=== PATIENT | female | born 1935 | race Two or more races ===

== ENCOUNTER 2022-07-31 10:00 | Day surgery (SDC) | payer OTHER | END 2022-07-31 15:05 | disposition home or self-care (01) | LOC: AMB-ENDOS 10:00 | PROVIDERS: ATTEND Surgery | DX: K62.3 Rectal prolapse (principal); R15.9 Full incontinence of feces; Z86.010 Personal history of colon polyps; Z88.6 Allergy status to analgesic agent ==

== ENCOUNTER 2022-09-21 08:30 | Inpatient (IN) | payer OTHER ==
[~2022-09-21] VITALS: Ht 149.9 cm; Wt 54.4 kg
[2022-09-21] MEDS ORDERED: TIROSINT50 MCG PO (10:05)
[2022-09-21] MEDS ORDERED: CITALOPRAM PO (10:06)
[2022-09-21] MEDS ORDERED: AMLOD PO (10:06)
[2022-09-21] MEDS ORDERED: SYMBICORT 16010.2 GM IH (10:07)
[2022-09-21] MEDS ORDERED: SINGULAIR10 MG PO (10:07)
[2022-09-21] MEDS ORDERED: QUETIA PO (10:07)
[2022-09-21] MEDS ORDERED: [UNRECOGNIZED DRUG - OTHER] IH (10:08)
[2022-09-21] MEDS ORDERED: ATORVASTATIN CA20 MG PO (10:08)
[2022-09-21] MEDS ORDERED: GABAPENTIN PO (10:09)
[2022-09-26] MEDS ORDERED: LEVOFLOXACIN500 MG PO (12:57)
[2022-09-26] MEDS ORDERED: TRAM1TAB98 PO (12:57)
[2022-09-26] MEDS ORDERED: INTESTINEX680 M1 PO (12:57)
== END 2022-09-26 15:45 | disposition home or self-care (01) | DRG 334 ==
LOC: SURH 09-25 07:00 → O/R 09-25 07:49 → SURH 09-25 07:49
PROVIDERS: ADMIT Surgery; ATTEND Surgery
PROC: 0DBNFZZ Excision of Sigmoid Colon, Via Natural or Artificial Opening With Percutaneous Endoscopic Assistance (ICD-10-PCS; 2022-09-25)
PROC: 0DUR0JZ Supplement Anal Sphincter with Synthetic Substitute, Open Approach (ICD-10-PCS; 2022-09-25)
PROC: 3E0T3BZ Introduction of Anesthetic Agent into Peripheral Nerves and Plexi, Percutaneous Approach (ICD-10-PCS; 2022-09-25)
PROC: 0DBP0ZZ Excision of Rectum, Open Approach (ICD-10-PCS; principal; 2022-09-25 07:00)
DX: K62.3 Rectal prolapse (principal); Z20.822 Contact with and (suspected) exposure to COVID-19

== ENCOUNTER 2023-12-17 06:21 | Inpatient (IN) | payer OTHER ==
[~2023-12-17 06:21] MED LIST: AMLOD PO; AMLODIPINE-OLM1 EAC2; ATORVASTATIN CA20 MG; ATORVASTATIN CA20 MG PO; BUDESONIDE-FO10.2 G1; CITALOPRAM PO; GABAPENTIN PO; GRALISE600 MG PO; INTESTINEX680 M1 PO; LEVOFLOXACIN500 MG PO; MEMANTINE HCL10 MG; MYRBETRIQ25 MG; QUETIA PO; SERTRALINE HCL50 MG; SINGULAIR10 MG PO; SYMBICORT 16010.2 GM IH; TIROSINT50 MCG PO; TRAM1TAB98 PO; [UNRECOGNIZED DRUG - OTHER] IH
[2023-12-17] MEDS ORDERED: LIDOCAINE HCL 1%/EPINEPHRINE 20ML VIAL IJ ONE (07:11)
[2023-12-17] MEDS ORDERED: BUPIVACAINE HCL/MPF 0.5% 30ML VIAL ONE (07:11)
[2023-12-17] MEDS ORDERED: CEFTRIAXONE SODIUM 2,000 MG VIAL ONE (07:17)
[2023-12-17] MEDS ORDERED: METRONIDAZOLE/SODIUM CHLORIDE 500 MG/100 ML PIGGYBACK IV ONE ×2 (07:18→09:24)
[2023-12-17] MEDS ORDERED: POVIDONE-IODINE 118 ML BOTT TOP ONE (07:25)
[2023-12-17] MEDS ORDERED: HEMOSTATIC MATRIX 1 KIT KIT TOP ONE (07:25)
[2023-12-17] MEDS ORDERED: DIBUCAINE 30 GM TUBE ONE (07:25)
[2023-12-17] MEDS ORDERED: OxyCODONE HCL 5 MG TABLET (ROXICODONE) PO PRN (08:45)
[2023-12-17] MEDS ORDERED: MORPHINE SULFATE 4 MG/ML CARTRIDGE IV PRN (08:45)
[2023-12-17] MEDS ORDERED: ONDANSETRON HCL 2 MG/ML VIAL IV PRN (08:45)
[2023-12-17] MEDS ORDERED: RINGERS SOLUTION,LACTATED 1,000 ML IV SCH (08:45)
[2023-12-17] MEDS ORDERED: FAMOTIDINE/PF 20 MG/2 ML VIAL IV PUSH SCH (09:00)
[2023-12-17] MEDS ORDERED: GABAPENTIN 300 MG CAPSULE PO SCH (09:00)
[2023-12-17] MEDS ORDERED: METRONIDAZOLE/SODIUM CHLORIDE 500 MG/100 ML PIGGYBACK IV SCH (09:00)
[2023-12-17] MEDS ORDERED: CIPROFLOXACIN IN 5 % DEXTROSE 400 MG/200 ML PIGGYBAG IV SCH (09:00)
[2023-12-17] MEDS ORDERED: LACTOBACILLUS ACIDOPHILUS 1 CAP CAP PO SCH (09:00)
[2023-12-17] MEDS ORDERED: HYOSCYAMINE SULFATE 0.125 MG TAB.SUBL SL SCH (09:00)
[2023-12-17] MEDS ORDERED: POLYETHYLENE GLYCOL 3350 17 GM BLIST.PACK PO SCH (09:00)
[2023-12-17] MEDS ORDERED: TAMSULOSIN HCL 0.4 MG CAP PO SCH (09:00)
[2023-12-17] MEDS ORDERED: TRAZODONE HCL50 MG (09:20)
[2023-12-17] MEDS ORDERED: NORVASC2.5 MG (09:21)
[2023-12-17] MEDS ORDERED: OMEPRAZOLE20 MG (09:21)
[2023-12-17] MEDS ORDERED: APETIGEN L790 MG/15 (09:21)
[2023-12-17] MEDS ORDERED: SERTRALINE HCL25 MG (09:21)
[2023-12-17] MEDS ORDERED: GABAPENTIN300 M2 (09:21)
[2023-12-17] MEDS ORDERED: FAMOTIDINE/PF 20 MG/2 ML VIAL ONE ×2 (09:23→11:00)
[2023-12-17] MEDS ORDERED: CIPROFLOXACIN IN 5 % DEXTROSE 400 MG/200 ML PIGGYBAG IV ONE (11:00)
[2023-12-17] MEDS ORDERED: ENALAPRILAT DIHYDRATE 1.25 MG/ML VIAL IV PRN (11:45)
[2023-12-17] MEDS ORDERED: ACETAMINOPHEN 500 MG GEL..CAP PO SCH (12:00)
[2023-12-17] MEDS ORDERED: ALBUTEROL SULFATE 3 ML/2.5 MG AMPUL.NEB IH SCH (12:00)
[2023-12-17] MEDS ORDERED: MONTELUKAST SODIUM 10 MG TABLET PO SCH (21:00)
[2023-12-17] MEDS ORDERED: MEMANTINE HCL 10 MG TABLET PO SCH (21:00)
[2023-12-18] MEDS ORDERED: LEVOTHYROXINE SODIUM 50 MCG TABLET PO SCH (06:00)
[2023-12-18 07:52] LABS: HEMOGLOBIN 10.6 g/dL (12.0-15.00); MEAN CELL VOLUME 87.4 fL (80.00-100.00); MEAN CORPUSCULAR HEMOGLOBIN 29.9 pg (27.00-32.0); MEAN CORPUSCULAR HGB CONC 34.2 g/dl (32.0-36.0); PLATELET COUNT 204 K/uL (150-450); RED BLOOD COUNT 3.55 M/uL (4.00-6.00); RED CELL DISTRIBUTION WIDTH 14.1 % (11.5-14.5)
[2023-12-18 08:13] LABS: ALBUMIN 3.2 gm/dL (3.4-5.0); CALCIUM 8.4 mg/dL (8.5-10.1); CREATININE SERUM 0.68 mg/dL (0.55-1.02); GFR 82.04; MAGNESIUM 1.5 mg/dL (1.8-2.4); PHOSPHOROUS 2.1 mg/dL (2.5-4.9); POTASSIUM 4.15 mEq/L (3.5-5.1)
[2023-12-18] MEDS ORDERED: AMLODIPINE BESYLATE 2.5 MG TABLET PO SCH (09:00)
[2023-12-18] MEDS ORDERED: PATIENTS OWN MEDICATION (MEDICAMENTO EN PISO) PO SCH (09:00)
[2023-12-18] MEDS ORDERED: SERTRALINE HCL 50 MG TABLET PO SCH (09:00)
[2023-12-18] MEDS ORDERED: ATORVASTATIN CALCIUM 20 MG TABLET PO SCH (17:00)
[2023-12-18] MEDS ORDERED: ENOXAPARIN SODIUM 40 MG/0.4 ML SYRINGE SUBCUTANEO SCH (17:00)
[2023-12-19] MEDS ORDERED: ENOXAPARIN SODIUM 40 MG/0.4 ML SYRINGE SUBCUTANEO SCH (09:00)
== END 2023-12-18 13:51 | disposition home or self-care (01) | DRG 331 ==
LOC: CIR.AMB 06:21 → O/R 09:17 → SURH 11:10 → CIR.AMB 11:15 → SURH 12-18 13:51
PROVIDERS: ADMIT Surgery; ATTEND Surgery
PROC: 0DBP4ZZ Excision of Rectum, Percutaneous Endoscopic Approach (ICD-10-PCS; 2023-12-17)
PROC: 0DUR0JZ Supplement Anal Sphincter with Synthetic Substitute, Open Approach (ICD-10-PCS; 2023-12-17)
PROC: 3E0T3BZ Introduction of Anesthetic Agent into Peripheral Nerves and Plexi, Percutaneous Approach (ICD-10-PCS; 2023-12-17)
PROC: 0DTN4ZZ Resection of Sigmoid Colon, Percutaneous Endoscopic Approach (ICD-10-PCS; principal; 2023-12-17 17:00)
DX: K62.3 Rectal prolapse (principal); R15.9 Full incontinence of feces; Z20.822 Contact with and (suspected) exposure to COVID-19